=== PATIENT | female | born 1960 | race Caucasian/White ===

== ENCOUNTER 2016-08-28 10:40 | Emergency (ER) | payer BC ==
[2016-08-28 11:00] VITALS: RESP 14; TEMP 97.1
[2016-08-28] MEDS ORDERED: NORMAL SALINE 10 ML SYRINGE FLUSH IVP PRN (11:07)
[2016-08-28] MEDS ORDERED: cefTRIAXone Inj 1 GM in Sodium Chloride 0.9% 100 ML IV ONE (11:08)
[2016-08-28] MEDS ORDERED: Lidocaine 1% 10 MG/ML - 20 ML VIAL SUBCUT ONE (11:09)
[2016-08-28] MEDS ORDERED: HYDROmorphone 2 MG/1 ML IVP ONE (11:45)
[2016-08-28] MEDS ORDERED: ONDANSETRON 4 MG/2 ML VIAL IVP ONE (11:45)
--- NOTE | 2016-08-28 16:11 | PDOC ---
General Adult HPI - General Chief Complaint: General Medical Stated Complaint: "groin pain" Date Seen by Provider: 08/28/16 Time Seen by Provider: 10:35 Source: POSITIVE: Patient Exam Limitations: POSITIVE: No limitations Nurse's Notes Reviewed & Considered: Yes - History of Present Illness Initial Comment: Patient is a 56 year old female. She complains of pain, swelling and redness to her left vaginal area for the past 3 days. She's had some associated nausea but no vomiting. No fevers or chills. She was seen in the walk-in clinic yesterday and was started on doxycycline. She is not sexually active. She's had a hysterectomy. No vaginal bleeding. She's not noticed any cutaneous lesions. Have you received a tetanus shot in the past 10 years?: Yes Body Location Affected: REPORTS: Genitalia (Left vaginal labia majora) Timing: REPORTS: Gradual, Getting Worse Duration: >24 hours (3 days approximately) Severity: Moderate Quality: REPORTS: "Pain" Context: DENIES: None, Sitting, Standing, Activity, Emotional stress, Coughing, Recent Trauma, Recent Surgery, Sleep, Rest, Lifting, Turning, Bending, Fall, Near Fall, Other Modifying Factors: improves with: Other (Direct palpation). worse with: Nothing , Analgesics, Antacids, Breathing, Coughing, Defecating, Vomiting, Eating, Exercise, Lying down, Urinating, Palpation, Movement, Rest, Upright Position, Walking, Remaining Still Similar Symptoms Previously: No Recent Care Received: REPORTS: Recently Seen, Treated by MD (Seen in walk-in clinic yesterday; started on doxycycline) Any Prior Injuries Related to Current Complaint?: No - Patient Home Medications Home Medications: Home Medications Acetaminophen-Cod #3 Tablet [Tylenol #3 Tab] 30 mg PO PRN PRN 02/24/12 Calcium Carbonate/Vitamin D3 [Caltrate 600 W-D Tablet] 1 each PO DAILY 02/24/12 Glucosamine HCl/Chondro Dior A [Glucosamine Chondroitin Cap] 1 each PO DAILY 02/23 Lorazepam 1 mg PO TID 02/24/12 Nebivolol HCl [Bystolic] 10 mg PO DAILY 02/24/12 Pramipexole Di-HCl [Mirapex] 0.125 mg PO DAILY 02/24/12 Pregabalin [Lyrica] 100 mg PO TID 02/24/12 Duloxetine HCl [Cymbalta] 30 mg PO DAILY 04/08/14 Doxycycline Hyclate 1 cap PO BID #20 cap 08/27/[address] Renetta Leiva 08/28/16 - Patient Allergies Allergies/Adverse Reactions: Allergies Allergy/AdvReac Type Severity Reaction Status Date / Time Penicillins Allergy Unknown RASH Verified 08/28/16 10:47 TINCTURE OF BENZOINE Allergy Intermediate RASH Uncoded 08/28/16 10:47 Past Medical History - heen HEENT History: Denies History Cardiovascular History: Hypertension Respiratory History: Denies History Gastrointestinal History: Peptic Ulcer Disease Genitourinary History: Denies History Endocrine History: Denies History Musculoskeletal History: Fibromyalgia Prosthesis or Implant: No Neurological History: Denies History Blood Disorders: Denies History Psychiatric History: Denies History History of Sexually Transmitted Diseases: No Female Reproductive History: Denies History LMP: HYSTER Obstetrical History: Denies History Cancer History: Denies History In Past Year Been Physically Harmed or Verbally Threatened: No History of MDRO: No History of Other Communicable Diseases: No Tobacco Use: Never Smoker Alcohol Use: None Substance Use Type: None Previous Surgical History: Yes Type / Date of Surgery: HYSTERECTOMY, "MULTIPLE OTHERS BUT CAN'T LIST THEM TODAY ". Anesthesia Reactions: No Malignant Hyperthermia: No Significant Family History: No pertinent family hx Past Medical History Reviewed: Reviewed - No Changes ROS - Limitations ROS Limitations: No Limitations Constitution: REPORTS: Denies Symptoms Cardiovascular: REPORTS: Denies Cardiac Symptoms Respiratory: REPORTS: Denies Resp Symptoms Neurological: REPORTS: Denies Neuro Symptoms Gastrointestinal: REPORTS: Denies GI Symptoms Endocrine: REPORTS: Denies Symptoms Musculoskeletal: REPORTS: Denies MS Symptoms Genitourinary: REPORTS: Denies Symptoms, Other (Pain and swelling left side of her vagina) Eyes: REPORTS: Denies Symptoms ENT: REPORTS: Denies Symptoms Skin: REPORTS: Other (Swelling pain and some redness left vaginal labia majora) Lympathic: REPORTS: Denies Lympathic Symptoms Immunologic: POSITIVE: Denies Symptoms Psychiatric: POSITIVE: Denies Psych Symptoms General Adult Exam - General Appearance General Appearance: POSITIVE: Alert, Cooperative, No Acute Distress, No Evidence of Trauma - HEENT HEENT: POSITIVE: Head Inspection Nml, Eyes Inspection Nml, Ears Inspection Nml, Nose Inspection Nml, Oral/Dental Inspect. Nml, Pharynx Inspect. Nml, PERRL, EOMI - Pupils Pupil Size: 3 mm: Bilateral - Neck Neck: POSITIVE: Normal Inspection, Thyroid Normal - Respiratory Respiratory: POSITIVE: No Respiratory Distress, Breath Sounds Normal, Chest Non- Tender - Cardiovascular Cardiovascular: POSITIVE: Regular Rate & Rhythm, No Murmur, No Gallop, PMI Normal Peripheral Pulses: Radial (R): 2+, Radial (L): 2+ - Abdomen Abdomen: Soft: (All Quadrants), Normal Bowel Sounds: (All Quadrants), Denies Tenderness: (All Quadrants), No Splenomegaly: (All Quadrants), No Hepatomegaly: (All Quadrants), No Guarding: (All Quadrants), No Rebound: (All Quadrants), No Palpable Pulse: (All Quadrants), No Palpabale Mass: (All Quadrants), No Distention: (All Quadrants), No Rigidity: (All Quadrants) - Back Back: POSITIVE: Normal Inspection - Skin Skin: POSITIVE: Erythema, Other (Swelling with some tenderness and redness left vaginal labia majora; no fluctuance, pointing or obvious abscess appreciated.) - Extremities Extremity: Non-Tender: (All Extremities), Normal ROM: (All Extremities), Normal Inspection: (All Extremities) - Neurological / Psychological Neurological: POSITIVE: Oriented X3, clay hoister Normal As Tested, Motor Normal, Sensation Normal, 5, 6 Images - Genitalia Female Genitalia: 1 - Swelling, redness, tenderness; no fluctuance, pointing or obvious abscess appreciated General Adult Progress - Patient's Progress Pain Medication Addressed: POSITIVE: Patient Refused (Pain declined any analgesia; she was given Zofran, 4 mg IV with relief of her nausea) School/Work Release Addressed: POSITIVE: Not Applicable Re-Examine Time: 12:00 Re-Examine Comment: Patient given a gram of Rocephin IV. Advised the patient that I see no abscess at this time to incise or drain. Dr. Schulte, HAND SCRAPER, consulted, who will see the patient in the emergency room. Status: POSITIVE: Unchanged, Re-Examined Antibiotics Given: Yes (Rocephin 1 g IV) - Consult Consult (If Yes, Name of Consulting MD & Time Called): Yes (Dr. Schulte, HAND SCRAPER , 1730) Consulting MD will see pt:: POSITIVE: In ED, In Office (HAND SCRAPER solar consultant saw patient in ER and will follow-up with patient in his office.) Counseled: POSITIVE: Patient, RE: DX, RE: Need for F/U Patient Care Time - Estimated PCT Patient Care Time (In Minutes): 40 Vital Signs - Recent Vital Signs Vital Signs: Vital Signs (Last 8 hours) Temp Pulse Resp BP Pulse Ox 08/28/16 10:40 97.1 F 103 H 14 96/52 97 - VS Reviewed Vital Signs Reviewed: Yes Discharge Clinical Impression: Cellulitis Discharge Disposition: Discharged to Home (Follow-up with HAND SCRAPER solar consultant) Condition: Good Patient Instructions Given at Discharge: Cellulitis (ED) Additional Instructions: Pt to follow up with Dr. Schulte at 9 am tomorrow morning at his office. Do not eat or drink anything after midnight tonight in case further evaluation shows need for surgery. Follow Up With: CRISTOPHER SCHULTE [STAFF PHYSICIAN] - 08/29/16 9:00 am (to see Dr. Schulte in am) NONE,NONE [Primary Care Provider] -
--- NOTE | 2016-08-28 16:36 | CONSULT ---
Consult Note - Consult Consult Date: 08/28/16 Reason for Consult: cellulitis Requesting Physician: Dr. Agrawal Primary Care Provider: NONE NONE - History of Present Illness History of Present Illness: The patient is a 56-year-old G0 LMP about 10 years ago when the patient had a hysterectomy/BSO who presented to the emergency room today after a 3 day history of pain and swelling in her left labia. The patient recalls waking up early Saturday morning with swelling of her left labia. Positive pain. This worsened throughout the day and the patient was then seen Saturday in the acute care clinic and was diagnosed with a cyst on her perineum and was treated with doxycycline since the patient was allergic to penicillin. The patient then believes she had a fever last night or early this morning but did not take her temperature. The patient's pain continued and the patient went to the emergency room today and the ER physician saw her and did not notice any fluctuance but only the cellulitis. The patient was given [address] Agrawal then consulted me to ensure that there is not an area that needed to be incised and drained. The patient does not recall any specific injury to her left labia. The patient is not sexually active. No trauma. Past medical history significant for hypertension, chronic pain status post an injury to her chest. The patient takes chronic pain medications-Tylenol 3 and sees a pain physician in [place], [place]. Migraine headaches The patient is allergic to penicillins and to tincture of benzoin Past Medical History Tobacco Use: Never Smoker Substance Use Type: None Medication / Allergies Home Medications: Home Medications Medication Instructions Recorded Confirmed Type Acetaminophen-Cod #3 Tablet 30 mg PO PRN PRN 02/24/12 08/28/16 History [Tylenol #3 Tab] Calcium Carbonate/Vitamin D3 1 each PO DAILY 02/24/12 08/28/16 History [Caltrate 600 W-D Tablet] Glucosamine HCl/Chondro Dior A 1 each PO DAILY 02/24/12 08/28/16 History [Glucosamine Chondroitin Cap] Lorazepam 1 mg PO TID 02/24/12 08/28/16 History Nebivolol HCl [Bystolic] 10 mg PO DAILY 02/24/12 08/28/16 History Pramipexole Di-HCl [Mirapex] 0.125 mg PO DAILY 02/24/12 08/28/16 History Pregabalin [Lyrica] 100 mg PO TID 02/24/12 08/28/16 History Duloxetine HCl [Cymbalta] 30 mg PO DAILY 04/08/14 08/28/16 History Doxycycline Hyclate 1 cap PO BID #20 cap 08/27/16 08/28/[address] Renetta Leiva 08/28/16 History Allergies/Adverse Reactions: Allergies Allergy/AdvReac Type Severity Reaction Status Date / Time Penicillins Allergy Unknown RASH Verified 08/28/16 10:47 TINCTURE OF BENZOINE Allergy Intermediate RASH Uncoded 08/28/16 10:47 Exam - Vitals Vital Signs: Vital Signs Temperature 97.1 F Temperature Source Temporal Artery Scan Pulse Rate [Pulse Oximeter 103 Right] Respiratory Rate 14 Blood Pressure [Right Arm] 96/52 Pulse Ox 97 Oxygen Delivery Method Room Air Height 5 ft 5 in Weight 270 lb - General General Appearance: POSITIVE: Cooperative, Mild Distress (Secondary to discomfort in the patient's left labia majora) - Respiratory Respiratory Exam: POSITIVE: Clear to Auscultation - Bilaterally - Cardiovascular Cardiovascular Exam: POSITIVE: RRR - GI/Abdominal GI/Abdominal Exam: POSITIVE: Normal Bowel Sounds, Non Tender, Non Distended, Soft - Rectal Rectal Exam: POSITIVE: Normal Inspection. NEGATIVE: Tenderness (Nontender to exam. No fluctuance or masses noted. No evidence of perirectal abscess by exam ) - External Exam: POSITIVE: Swelling (Left labia majora; no fluctuance to palpation , positive induration, positive tenderness.), Erythema (Left labia majora). NEGATIVE: Laceration(s), Lesion(s) Exam: POSITIVE: Deferred Additional Exam Details: Bimanual exam did not yield any masses at 5:00 such as a Bartholin's duct abscess on left or right side. - Psychiatric Psychiatric Exam: POSITIVE: Normal Affect, Normal Mood - Integumentary Integumentary Exam: POSITIVE: Normal Color Assessment and Plan - Assessment / Plan Additional Assessment/Plan Details: Assessment: Left labia majora cellulitis. No evidence of abscess by exam today. No evidence of perirectal abscess by exam. No evidence of Bartholin duct abscess by exam. Plan: Discharge home The patient did receive 1 dose of Rocephin IV in the emergency room. Ceftin 500 mg by mouth twice a day for 10 days #20 and no refills Clindamycin 150 mg 3 capsules by mouth 3 times a day for 10 days #90 no refills Of note, I did speak with our clinical pharmacology team [place] [facility] [place] There is some overlap between Ceftin and clindamycin with respect to anaerobes. However, both antibiotics were prescribed secondary to the cellulitis after considering different options. The patient will stop the doxycycline that she was prescribed. Of note, I called both of these prescriptions in to [facility] here in [place], [place]. Warm compresses to area 4 times a day. Return to the medical office building to see me tomorrow morning at 0900 hours in the morning. Nothing by mouth after midnight in case a fluctuant area develops that I would recommend incision and drainage tomorrow. The patient has Tylenol 3 which works well for her for pain control Ibuprofen 800 mg 3 times a day with food or milk The patient denies shaving her area but I suggested only clipping if she does want shorter pubic hair. The patient expressed understanding with the above. I actually called the patient after I prescribed the medications.
== END 2016-08-28 15:30 | disposition home or self-care (01) ==
LOC: ER 10:40
DX: N76.2 Acute vulvitis (principal); R10.2 Pelvic and perineal pain
CPT/HCPCS: 96365; 96375; 99282; 99283; J0696; J2001; J2405; J7050

== ENCOUNTER 2016-08-29 11:54 | Inpatient (IN) | payer BC ==
[~2016-08-29 11:54] MED LIST: LIDOCAINE W/ SODIUM BICARB 0.5 ML SYR ONE; Sodium Chloride 0.9% 1,000 ML ONE
[2016-08-29] MEDS ORDERED: Clindamycin 900mg (Premix) 50 ML IV ONE (12:13)
[2016-08-29] MEDS ORDERED: Sodium Chloride 0.9% 1,000 ML ONE (12:36)
[2016-08-29] MEDS ORDERED: fentaNYL Inj 250 MCG/5 ML VIAL ONE (13:02)
[2016-08-29] MEDS ORDERED: SODIUM BICARBONATE 8.4% - 50 ML VIAL ONE (13:02)
[2016-08-29] MEDS ORDERED: MIDAZOLAM 5 MG/1 ML ONE (13:02)
[2016-08-29] MEDS ORDERED: LIDOCAINE 2% 20 MG/ML - 20 ML VIAL ONE (13:02)
[2016-08-29] MEDS ORDERED: BUPivacaine Inj 0.5% PF (5mg/ml) 10ml vial ONE (13:02)
[2016-08-29] MEDS ORDERED: Sodium Chloride 0.9% 2,000 ML ONE ×2 (13:23→16:02)
--- NOTE | 2016-08-29 15:30 | OB.OP.NOTE ---
Operative Report Surgeon: Salvador Anesthesia Type: Local (Half percent Marcaine with epinephrine), MAC Anesthesia Provider: Jian Bell CRNA Surgery Date: 08/29/16 Preoperative Diagnosis: Left labia majora abscess. New onset type II diabetes. Hyponatremia Postoperative Diagnosis: Same Procedure: Incision and drainage of left labia majora abscess Estimated Blood Loss (mL): 100 Fluids: 1500 mL normal saline in OR. 2000 mL normal saline in the PACU prior to the OR. Rocephin 2 g IV prior to the OR. Clindamycin 900 mg IV prior to OR. The patient voided just prior to going to the operating room Complications: None apparent Findings at Surgery: About 15 mL of exudate obtained after incision and drainage of left labia majora abscess at 3 different locations 3 different incisions packed with quarter inch non-iodoform gauze Indications for the Procedure: 56-year-old woman G0 LMP about 10 years ago and patient had a hysterectomy/BSO who awoke on Saturday morning (today is Saturday) with left labia majora swelling and pain. Patient was seen in the acute care clinic on Saturday afternoon and was placed on doxycycline. The patient went to the emergency room yesterday and was diagnosed with cellulitis but I was asked to see the patient. The patient received 1 g of Rocephin IV in the emergency room. I examined the patient and there was no evidence of a vaginal abscess such as a Bartholin duct abscess and no evidence of a perirectal abscess by rectal exam. There was no fluctuance by my exam and the left labia majora was erythematous but the mons pubis was not. The patient was placed on Ceftin and clindamycin orally and asked to return this morning to see me in my office. In my office this morning, the patient stated that her pain was about the same. On exam, the mons pubis was erythematous with some induration but no fluctuance. There was some leakage of exudate inferior to the labia majora a couple centimeters from the posterior fourchette of the vagina on the left side. The exudate was coming from a few small pores but there was no abruption of the skin. The labia majora appeared slightly fluctuant superiorly. Labs were obtained and the patient's white count was 18,000 and the patient's glucose returned at 600. Sodium was 122. The patient stated that that she did not have a history of type II diabetes that she knew of. She is followed by a primary care physician in [place], [place] who also follows her for chronic pain secondary to a chest injury that she had historically. The patient is on Tylenol 3 for the chronic pain. With the above, I spoke with infectious disease and a Gram stain of the exudate was obtained. It was polymicrobial. Gram-positive cocci, gram-negative rods and gram-positive rods were visualized on the Gram stain. The patient was administered Rocephin 2 g IV and clindamycin 900 mg IV prior to the surgery. Consent forms were signed and the patient was brought to the operating room for I&D of her left labia majora. The patient was informed prior to the surgery that she may require multiple surgeries. We also discussed about necrotizing fasciitis and type II diabetics and the fact that she may require transfer to a tertiary care hospital in [facility] for further care depending upon her condition. Patient expressed understanding. Description of Procedure: The patient was brought to the operating room after the risks, benefits, alternatives, and indications were discussed with the patient and consent form was signed. The plan was for local MAC anesthesia. The patient was placed on the operating room table and placed in the [facility] stirrups after positioning. The patient was then prepped and draped sterilely while the patient was receiving MAC. The patient had just voided in the PACU prior to being brought to the operating room. I examined the patient. The area where the patient had spontaneous exudate from small pores was examined and half percent Marcaine with epinephrine was injected around that area and a small less than 1 cm incision was made. This incision was made a couple centimeters to the left of the posterior fourchette of the patient's vagina. Basically the most inferior aspect of the patient's labia majora. I then probed the area with a sterile Q-tip. At this time there was no tracking. There was some venous bleeding but no arterial bleeding. Quarter inch non-iodoform gauze was used to pack the area initially. Attention was then turned to the patient's superior left labia majora. An area of induration and perhaps fluctuance was palpated. I injected half percent Marcaine with epinephrine and then made about a 15 mm incision. I then probed this incision with small Jasmin instruments and did not get any return of exudate. I then took the knife blade one more time and gently punctured about 2 cm in depth a small layer of tissue and then probed this area with a Floridalma instrument and obtained several cc of exudate that had an odor of an anaerobic exudate. Attention was then turned to the patient's left labia majora about a centimeters inferior to I superior incision. Half percent Marcaine with epinephrine was injected in the skin and then I made an incision with a knife blade and then probed with a Floridalma and exudate was obtained. In total, perhaps 15 mL of exudate was expressed from the patient's labia majora. I then irrigated the superior I&D site and communication with the site that I last made 5 cm inferior to that was easily noted with saline coming out of the inferior incision. I was able to probe with a Floridalma and a track was noted. I then irrigated the incision I made last and I could determine that there was communication to the superior incision that I had made but also to the most inferior incision that I had made that was already draining some this morning. I irrigated with copious amounts of saline. I then made a phone call to a CORRUGATOR oncologist in [place] but was not able to speak with Dr. Willson. My question was whether or not to open up the labia majora completely between the 3 incisions that I had made previously to open up the entire labia majora and then allow the labia majora to heal by secondary intention and packing the wound. I then spoke with my HOME APPLIANCE WASHING MACHINE MECHANIC partner on the phone and we both decided secondary to the new diagnosis of type II diabetes with a glucose of 600 and the hyponatremia, the best action would be to pack the incisions that I previously made and then, if need be, take the patient back to the operating room again if the recommendation was to open up the entire labia majora. Enough of the abscess was currently drained that will allow the patient to start to heal and also will allow the patient's glucoses to hopefully become better controlled as well as the hyponatremia. At that time, there was minimal bleeding from the most inferior incision site which was dark blood but the other 2 sites were hemostatic and I packed all 3 wounds with quarter inch non-iodoform gauze after the gauze that I initially packed in the most inferior incision was removed. So all 3 I&D sites had quarter-inch non-iodoform gauze packed and the gauze was protruding out of each incision site so they could be easily removed. The patient tolerated the procedure very well with the local MAC. The patient was brought to the PACU in stable condition. Sponge and lap counts were correct 2. Packing was left in place. 4 x 4 gauze was packed between the patient's buttock's for the most inferior incision and other gauze was placed over the patient's labia majora on the left side. Plan: The patient will be brought to the PACU. After recovery in the PACU [facility] I previously spoke with the hospitalist-Dr. Griffin and he will primary the patient since the patient is a new onset type II diabetic with a glucose of 600 initially this morning and a sodium of 122. The patient will receive Rocephin 2 g IV every 24 hours The patient will receive clindamycin 900 mg IV every 8 hours I ordered hydrocodone for the patient even though she takes Tylenol No. 3. Folded with physical therapy and they will see the patient around 1700 hrs. to evaluate the patient for repacking the 3 I&D sites this evening or just in the morning. The patient should have this completed twice a day.
[2016-08-29] MEDS ORDERED: Insulin Lispro Flexpen 300 UNIT/3 ML INSULN.PEN SUBCUT ONE ×2 (16:14→16:30)
[2016-08-29] MEDS ORDERED: Insulin Sliding Scale Protocol SUBCUT PRN (16:24)
[2016-08-29] MEDS ORDERED: Glucagon Inj Vial 1 MG/ML VIAL IM PRN (16:24)
[2016-08-29] MEDS ORDERED: LORazepam 1 MG TABLET PO PRN (16:24)
[2016-08-29] MEDS ORDERED: DEXTROSE 31 GM GEL PO PRN (16:24)
[2016-08-29] MEDS ORDERED: DEXTROSE 50%-WATER SYRINGE 50 ML SYRINGE IVP PRN (16:24)
[2016-08-29] MEDS ORDERED: Lactated Ringers 1,000 ML PRIMARY IV SCH (16:25)
[2016-08-29] MEDS ORDERED: HYDROcodone-APAP 5 MG -325 MG TABLET PO PRN (16:25)
[2016-08-29] MEDS ORDERED: NORMAL SALINE 10 ML SYRINGE FLUSH IVP PRN (16:25)
[2016-08-29] MEDS ORDERED: Sodium Chloride 0.9% 1,000 ML PRIMARY IV SCH ×2 (16:30→18:30)
--- NOTE | 2016-08-29 16:37 | PDOC ---
History and Physical - History of Present Illness Date and Time of Service: 08/29/2016, 1635 Chief Complaint: Labial infection History of Present Illness: This very pleasant 56-year-old female that has chronic pain syndrome from an old chest injury, possible obstructive sleep apnea with snoring, weight gain of 30-40 pounds in the last year, who generally follows her care in [place], [place] , who came into the acute clinic on Saturday having complaints of some pain in her vaginal area. She thought she might have a zit pimple in her labial area. She was seen by one of the providers at the open access clinic and placed on doxycycline with follow-up to see Dr. Franco. She saw Dr. Franco, and he ended up feeling that this had to be drained surgically. Initially, it was not reddened or indurated. However, on the follow-up visit, the patient had worsening induration and drainage on the inferior aspect of the lesion, and the patient was taken to the operating room today. She had gotten a dose of Rocephin in the emergency room last night but apparently labs were not checked. She got a BMP and a CBC today that showed a white count of over 18,000 with 20 bands and a creatinine of 1.8 and a sugar of over 600. She did not know she was diabetic. Dr. Franco discussed with me whether or not he should proceed with surgery first or admit her for diabetes and glucose control, and I suggested that we should drain the infection first and then I could deal with things later. Postoperatively, the patient states her pain is well-controlled, she has no chest pain and no shortness breath, but she does have hypotension. Despite 3700 MLS in the operating room, and liters #4 and 5 currently, the patient still has systolic pressures in the 80s and diastolics in the 60's. We have now bolused 3 L of normal saline in addition to the 3700 mL given and surgery and pressures are still on the low side in the 80s over 60s. We have also placed a central line separate of this evaluation and management. I spoke to an brazer controlled atmospheric furnace at [facility] regarding potential transfer for continued monitoring of labial infection, sepsis, and other potential interventions. I asked for medical vancomycin which we have dosed. She had significant pain in the pelvis region that Tylenol 3 wasn't controlling. It is difficult to use medications for the patient for interventions prior to her surgery today and hospital admission, and this was attributed to severe nausea. Past Medical History Medical History: 1. Hypertension. 2. Chronic pain syndrome related to prior chest trauma Surgical History: 1. Cholecystectomy. 2. Hysterotomy. 3. Appendectomy. 4. Drainage of labial abscess and mons pubis abscess today. 5. Neck surgery 2 Pertinent Family History: Significant for cancer in her father, also significant for diabetes. Past Social History: Does not smoke or drink. . No children of her own. Has been to her for 18 years. Lives in [place], [place]. Her provider is Mitesh Carney PA-C in [place], [place]. Tobacco Use: Never Smoker Substance Use Type: None Alcohol Use: None Medication / Allergies Home Medications: Home Medications Medication Instructions Recorded Confirmed Type Acetaminophen-Cod #3 Tablet 30 mg PO PRN PRN 02/24/12 08/29/16 History [Tylenol #3 Tab] Calcium Carbonate/Vitamin D3 1 each PO DAILY 02/24/12 08/29/16 History [Caltrate 600 W-D Tablet] Glucosamine HCl/Chondro Dior A 1 each PO DAILY 02/24/12 08/29/16 History [Glucosamine Chondroitin Cap] Lorazepam 1 mg PO TID 02/24/12 08/29/16 History Nebivolol HCl [Bystolic] 10 mg PO DAILY 02/24/12 08/29/16 History Pramipexole Di-HCl [Mirapex] 0.125 mg PO DAILY 02/24/12 08/29/16 History Pregabalin [Lyrica] 100 mg PO TID 02/24/12 08/29/16 History Duloxetine HCl [Cymbalta] 30 mg PO DAILY 04/08/14 08/29/16 History Doxycycline Hyclate 1 cap PO BID #20 cap 08/27/16 08/29/[address] Renetta Leiva 08/28/16 History Allergies/Adverse Reactions: Allergies Allergy/AdvReac Type Severity Reaction Status Date / Time Penicillins Allergy Unknown RASH Verified 08/29/16 12:22 TINCTURE OF BENZOINE Allergy Intermediate RASH Uncoded 08/29/16 12:22 Ceftriaxone - rec'ed without Allergy Unknown NOT Uncoded 08/29/16 12:22 issue APPLICABLE Review of Systems - Review of Systems All Systems: Reviewed & No Additional Complaints Except as Stated (I did a 12 point review systems and it was as per history present illness with noted exceptions below.) - Constitutional Constitutional: REPORTS: Weight Gain (30-40 pounds over the last year.), Fever/ Chills (Parrish chills) - Respiratory Respiratory: REPORTS: Negative System Review - Cardiovascular Cardiovascular: REPORTS: Negative System Review - Gastrointestinal Gastrointestinal / Abdominal: REPORTS: Nausea (Has had significant nausea the past 3 days with all of these symptoms. She has not been able to hold any medications down. She has not been able to drink a lot of fluids.) - Genitourinary Genitourinary: REPORTS: Incontinence (Occasional) - Gynecological Gynecological: REPORTS: Pelvic Pain Para: 0 - Musculoskeletal Musculoskeletal: REPORTS: Other (Joint pain, particularly in chest and thoracic spine) - Hematlogic / Lymphatic Hematologic / Lymphatic: REPORTS: Other (No history of cancer, does not bruise easily) - Neurological Neurologic: REPORTS: Other (May have sleep disturbances such as sleep apnea) - Psychiatric Psychiatric: DENIES: Anhedonia, Anxiety, Depressed, Hopelessness, Hospitalization, Negative System Review, Other, Panic, Sadness, See HPI, Suicidality, Tearfullness Exam - Vitals Vital Signs: Vital Signs Temperature 97.9 F Temperature Source Temporal Artery Scan Pulse Rate 75 Respiratory Rate 14 Blood Pressure 85/54 Oxygen Flow Rate 2 Oxygen Delivery Method Room Air Height 5 ft 5 in Weight 270 lb - General General Appearance: POSITIVE: No Acute Distress, Cooperative Additional General Exam Details: Appears ill, meets criteria for sepsis, is alert and oriented person, place, time, situation. - Head Head Exam: POSITIVE: Normal Inspection, Normocephalic, Atraumatic - Eye Eye Exam: POSITIVE: No Scleral Icterus - ENT ENT Exam: POSITIVE: Mucous Membranes Dry - Neck Neck Exam: POSITIVE: Normal Inspection, No Tenderness, No Thyromegaly - Respiratory Respiratory Exam: POSITIVE: Clear to Auscultation - Bilaterally, Breathing Non Labored, Normal to Percussion and Palpation - Cardiovascular Cardiovascular Exam: POSITIVE: RRR, No Murmur, No Clicks, No Gallops, No Rubs, No JVD - GI/Abdominal GI/Abdominal Exam: POSITIVE: Normal Bowel Sounds, Non Tender, Non Distended, Soft - Rectal Rectal Exam: POSITIVE: Deferred - External Exam: POSITIVE: Deferred Additional Exam Details: severe left labial swelling with iodoform gauze packing. harvey placed - Extremities Extremities Exam: POSITIVE: No Clubbing Present, No Edema Present, No Cyanosis Present - Back Back Exam: POSITIVE: Normal Inspection, No CVA Tenderness - Neurological Neurological Exam: POSITIVE: Alert, Oriented x 3, No Facial Droop, Speech Intact / Clear, Moves All Extremities Equally - Psychiatric Psychiatric Exam: POSITIVE: Normal Affect, Normal Mood - Integumentary Additional Integumentary Exam Details: labial findings as above, please note patient was examined in presence of a stone gluer - Central Line Examination Central Line Present on Admission: No Results - Labs Labs - Last 24 Hours: Patient had preoperative labs drawn as an outpatient. Her creatinine was 1.8, glucose over 600, sodium 122, potassium 5.1. White blood count was over 18,000 with 20 bands on differential. Blood cultures have been drawn Gram stain culture from drainage from the labial wound showed gram-positive cocci, gram-negative rods, gram-positive rods. Cultures Pending at this time. - Imaging Status: Image Reviewed by Me (I did a chest x-ray after the central line was placed. The central line on the right side appears to be in the correct location, somewhat tortuous approach, with catheter tip just above the atrium. No evidence of pneumothorax. No new infiltrate.) Assessment and Plan - Patient Problems (1) Sepsis Current Visit: Yes Status: Acute Qualifiers: Sepsis type: sepsis due to unspecified organism Qualified Description: Sepsis, due to unspecified organism Qualifier Code(s): (A41.9) Sepsis, unspecified organism (2) Poorly controlled type 2 diabetes mellitus Current Visit: Yes Status: Acute (3) Labial infection Current Visit: Yes Status: Acute (4) Acute renal failure Current Visit: Yes Status: Acute Qualifiers: Acute renal failure type: unspecified Qualified Description: Acute renal failure, unspecified acute renal failure type Qualifier Code(s): ( N17.9) Acute kidney failure, unspecified (5) Hypertension Current Visit: Yes Status: Acute Qualifiers: Hypertension type: essential hypertension Qualified Description: Essential hypertension Qualifier Code(s): (I10) Essential (primary) hypertension (6) Chronic pain syndrome Current Visit: Yes Status: Acute - Assessment / Plan Additional Assessment/Plan Details: The patient was admitted to the intensive care unit, catheter was placed. I'll bolus the patient 4 L of normal saline in addition to the 3700 mL she got in surgery. This was important in the setting of hypotension that persisted and was refractory to fluid resuscitation. I suggested we place a central line and did that separate and unique of this visit. Call to [facility] for transfer as patient needs obstetrics and gynecology, intensive care care and plastics and wound care for this labial infection. Rocephin and clindamycin have been written for, and the patient got 1 dose of vancomycin. Blood sugars currently over 300s, and so we will start an insulin drip. Total critical care time, not including line placement, 90 minutes. No overlap.
[2016-08-29 16:41] VITALS: RESP 20; TEMP 98.3
[2016-08-29] MEDS ORDERED: Vancomycin-PHA to Dose IV PRN (16:46)
[2016-08-29] MEDS ORDERED: LIDOCAINE HCL/PF 1% (10 MG/1 ML) - 2 ML AMP ONE ×4 (17:14→17:40)
[2016-08-29] MEDS ORDERED: NOREPINEPHRINE BITARTRATE 4 MG/4 ML VIAL IV ONE ×2 (17:59→18:00)
[2016-08-29] MEDS ORDERED: Norepinephrine Drip 8 MG in D5W 250 ML IV SCH (18:00)
[2016-08-29] MEDS ORDERED: D5W 250 ML IV ONE (18:01)
[2016-08-29] MEDS ORDERED: Sodium Chloride 0.9% 100 ML IV ONE (18:15)
[2016-08-29] MEDS ORDERED: INSULIN REGULAR, HUMAN 100 UNIT/1 ML - 3 ML ONE (18:16)
[2016-08-29] MEDS ORDERED: HYDROmorphone 2 MG/1 ML ONE (18:18)
[2016-08-29] MEDS ORDERED: ONDANSETRON 4 MG/2 ML VIAL ONE (18:20)
[2016-08-29] MEDS ORDERED: Insulin Regular Inj 100 UNIT in Sodium Chloride 0.9% 99 ML IV SCH (18:30)
--- NOTE | 2016-08-29 18:32 | PROCEDURE1 ---
Procedure - - Date and Time of Service: 08/29/2016, 1829 Procedure Note: Procedure performed: Right Internal jugular central venous catheter placement Indication for procedure: Sepsis refractory to early goal-directed therapy and fluid resuscitation., with risks discussed as possible arterial puncture, pneumothorax, and localized pain. Benefits for medication administration, blood draws, hemodynamic monitoring, and management of sepsis. Description of procedure: The patient was prepped and draped in the usual fashion with a full body drape. Ultrasound guidance was used to identify the right internal jugular vein. The area was cleansed with chlorhexidine. Lidocaine was used for local anesthesia. Using an introducer needle attached to a 5 mL syringe, this was inserted and angled towards the ipsilateral nipple, with ultrasound guidance as well. There was a flash of venous blood as the internal jugular vein was cannulated via the introducer needle. A guidewire was inserted through the needle into the internal jugular vein and the needle was removed over the wire. A 10 blade was then used to perform a small dermatotomy at the needle insertion site. The venous dilator was then placed over the guidewire using Seldinger technique, and then removed. 3 port central venous catheter was then placed over the guidewire inserted into the internal jugular vein and the guidewire was removed. All ports were flushed with normal saline. All ports had draw back. The catheter was sutured into place, and the skin was cleansed with chlorhexidine and the catheter was dressed. A postprocedure x-ray showed Central line in the correct location with tortuous approach to the tip being right over the right atrium. I personally reviewed the chest X-ray. Complications: Several attempts at cannulization had to take place on both the right and the left side, but eventually we got cannulization of the internal jugular vein on the right. There were no obvious problems for the patient, but we had one guidewire that actually bent on approach, and a vein dilator that did the same. Based on chest x-ray, I think the tortuous nature of this internal jugular vein was one of the reasons for these issues. Disposition: Patient remains in critical condition in the ICU awaiting transfer to [facility].
--- NOTE | 2016-08-29 18:35 | DCSUMMARY ---
Hospitalization Summary Admit Date: 08/29/16 Discharge Date: 08/29/16 Primary Diagnosis:: sepsis with refractory hypotension Hospital Course: This very pleasant 56-year-old female who did not know that she had diabetes and developed labial infection. She was admitted today after a labial and mons pubis incision and drainage performed by Dr. Franco. Please see his surgical note. Postoperatively, the patient was admitted to the intensive care unit was found to have refractory hypotension and sepsis did not respond to fluid resuscitation. Despite 7 L of normal saline, the patient continued to have hypotension in the 80s over 60s range. We did place a central line, vasopressors were started, and blood sugars were rechecked. Given if blood sugars are now down in the 300s, we felt it best to start an insulin drip and started that at 8 units per hour. The patient is been alert and oriented through the whole situation. She continues to have labial pain or has developed labial pain post surgery and we did give her some Dilaudid for that. Given the complexity of this infection, diabetes, acute renal failure, sepsis with refractory hypotension not responding to fluid with early goal-directed therapy, the patient was transferred to [facility]. On transfer the patient had labial pain, no chest pain, no shortness breath. Please note the patient did get a dose of Rocephin, clindamycin, and vancomycin. Assessment and Plan: 1. As per discharge assessments noted 2. Disposition: Patient's discharge to [facility] 3. Condition on discharge, stable and improved. 4. Diet: Nothing by mouth for now 5. Activities: resume normal activities/as per [facility] 6. Follow-Up: 1. Mitesh Carney PA-C posthospital stay in [place] 2. 7. Medications at the Time of Discharge: Active Medications Generic Name Dose Route Start Last Admin Trade Name Freq PRN Reason Stop Dose Admin Acetaminophen/Hydrocodone Bitart 1 - 2 tab 08/29/16 16:25 [place] 5/325 Tab PO Q4H PRN Pain Dextrose 30 - 40 ml 08/29/16 16:24 Dextrose 50% Inj IVP Q15M PRN BG < 70 unable to take oral Duloxetine HCl 30 mg 08/30/16 09:00 Cymbalta PO DAILY BISI Glucagon 0.5 mg 08/29/16 16:24 Glucagen IM ONCE PRN BG < 70 NPO & NO IV Glucose 15 - 20 gm 08/29/16 16:24 Insta-Glucose Gel PO Q15M PRN BG < 70 Ceftriaxone Sodium 2 gm/ 100 mls @ 200 mls/hr 08/30/16 11:00 Sodium Chloride IV Q24H BISI Clindamycin Phosphate 900 mg/ 50 mls @ 100 mls/hr 08/29/16 20:00 Glucose IV Q8H BISI Lactated Ringer's 1,000 mls @ 100 mls/hr 08/29/16 16:25 Lr PRIMARY IV .Q10H BISI Sodium Chloride 25 mls @ 200 mls/hr 08/29/16 16:25 Normal Saline 0.9% IV .Post Infusion PRN No Primary IV for Flush ONLY Vancomycin HCl 1.75 gm/ Sodium 500 mls @ 333.333 mls/hr 08/29/16 17:00 18:11 Chloride IV 333.333 mls/hr Q24H BISI Administration Norepinephrine Bitartrate 8 mg 258 mls @ 15.48 mls/hr 08/29/16 18:00 08/29/16 18:10 / Dextrose IV 15.48 mls/hr .TITRATE BISI Administration Protocol 8 MCG/MIN Insulin Human Regular 100 unit 100 mls @ 8 mls/hr 08/29/16 18:30 / Sodium Chloride IV .TITRATE BISI Protocol 8 UNIT/HR Sodium Chloride 1,000 mls @ 125 mls/hr 08/29/16 18:30 Normal Saline PRIMARY IV .Q8H BISI Insulin Human Lispro 0 - 28 unit 08/29/16 21:00 Humalog Flexpen Inj SUBCUT AC [facility] Protocol Lorazepam 1 mg 08/29/16 16:24 Ativan Tab PO TID PRN Agitation / Anxiety /Psychosis Sodium Chloride 5 - 20 ml 08/29/16 16:25 Saline Flush IVP BID PRN Flush 8. Time, care, counseling and coordination of care for this discharge is greater than 30 minutes. Exam - - Exam: See admission history and physical exam earlier today. - Vitals Vital Signs: Vital Signs Temperature 98.3 F Temperature Source Oral Pulse Rate [Telemetry] 74 Pulse Rate 75 Respiratory Rate 20 Blood Pressure [Left Arm] 83/56 Blood Pressure 85/54 Pulse Ox 96 Oxygen Flow Rate 89/62 Oxygen Flow Rate 2 Oxygen Delivery Method Nasal Cannula Height 5 ft 5 in Weight 270 lb Data Perinent Studies: Laboratory Results 08/29/16 Range/Units 16:54 PT 10.5 (9.7-11.4) secs INR 1.02 (0.00-5.90) N/A APTT 28.9 (22.6-31.3) SECS Patient Problems - Patient Problem List (1) Sepsis Current Visit: Yes Status: Acute Qualifiers: Sepsis type: sepsis due to unspecified organism Qualified Description: Sepsis, due to unspecified organism Qualifier Code(s): (A41.9) Sepsis, unspecified organism (2) Poorly controlled type 2 diabetes mellitus Current Visit: Yes Status: Acute (3) Labial infection Current Visit: Yes Status: Acute (4) Acute renal failure Current Visit: Yes Status: Acute Qualifiers: Acute renal failure type: unspecified Qualified Description: Acute renal failure, unspecified acute renal failure type Qualifier Code(s): ( N17.9) Acute kidney failure, unspecified (5) Hypertension Current Visit: Yes Status: Acute Qualifiers: Hypertension type: essential hypertension Qualified Description: Essential hypertension Qualifier Code(s): (I10) Essential (primary) hypertension (6) Chronic pain syndrome Current Visit: Yes Status: Acute
[2016-08-29] MEDS ORDERED: HYDROmorphone 2 MG/1 ML IVP PRN (18:36)
[2016-08-29 18:38] LABS: BASOPHILS # (AUTO) 0.02 10*3/UL; BASOPHILS % (AUTO) 0.1 % (0-1); EOSINOPHILS # (AUTO) 0.02 10*3/UL; EOSINOPHILS % (AUTO) 0.1 % (0-8); HEMATOCRIT 33.1 % (37.0-47.0); HEMOGLOBIN 11.1 g/dL (12.0-16.0); LYMPHOCYTES # (AUTO) 1.51 10*3/uL; MEAN CORPUSCULAR HEMOGLOBIN 29.1 PG (27-31); MEAN CORPUSCULAR HGB CONC 33.5 g/dL (33-37); MEAN CORPUSCULAR VOLUME 86.6 FL (81-99); MEAN PLATELET VOLUME 10.7 FL (7.4-12.2); MONOCYTES # (AUTO) 0.88 10*3/UL (0.3-0.8); MONOCYTES % (AUTO) 5.3 % (5-15); NEUTROPHILS # (AUTO) 14.17 10*3/UL; NEUTROPHILS % (AUTO) 84.9 % (50-80); PLATELET MORPHOLOGY COMMENT NORMAL MORPHOLOGY (NORM); RBC MORPHOLOGY COMMENT NORMAL MORPHOLOGY (NORM); RED BLOOD COUNT 3.82 10^6/uL (4.20-5.40); WBC MORPHOLOGY COMMENT NORMAL MORPHOLOGY (NORM)
[2016-08-29 18:49] LABS: BUN/CREATININE RATIO 28.33 (6-20); CALCIUM 6.6 mg/dL (8.7-10.7); SERUM ALBUMIN 3.2 g/dL (3.5-4.8)
--- NOTE | 2016-08-29 18:56 | DI ---
XR CXR 1VW,08/29/2016 5:53 PM: Clinical History: Sepsis status post central line placement. Previous Exam: April 08, 2014 Findings: A single frontal radiograph of the chest is obtained, and demonstrate stable cardiomegaly. A new central venous catheter is noted with the tip in good position. There is no evidence of pneumothorax nor effusion. Impression: New central venous catheter with the tip in good position.
[2016-08-29] MEDS ORDERED: Clindamycin 900mg (Premix) 900 MG in Dextrose 1 BAG IV SCH (20:00)
[2016-08-29] MEDS ORDERED: Insulin Lispro Flexpen 300 UNIT/3 ML INSULN.PEN SUBCUT SCH (21:00)
[2016-08-30] MEDS ORDERED: DULOXETINE 30 MG CAPSULE PO SCH (09:00)
[2016-08-30] MEDS ORDERED: cefTRIAXone Inj 2 GM in Sodium Chloride 0.9% 100 ML IV SCH (11:00)
== END 2016-08-29 18:32 | disposition short-term general hospital (02) | DRG 746 ==
LOC: SDSC 11:54 → OPS 12:00 → EDSTATUS 14:15 → MED/SURG 15:45 → ICU 16:51
PROVIDERS: ADMIT Obstetrics & Gynecology; ATTEND Family Medicine
PROC: 05HM33Z Insertion of Infusion Device into Right Internal Jugular Vein, Percutaneous Approach (ICD-10-PCS; 2016-08-29)
PROC: 0U9M0ZZ Drainage of Vulva, Open Approach (ICD-10-PCS; principal; 2016-08-29 14:15)
DX: N76.4 Abscess of vulva (principal); A41.89 Other specified sepsis; A41.9 Sepsis, unspecified organism; E87.1 Hypo-osmolality and hyponatremia; N17.9 Acute kidney failure, unspecified; E11.9 Type 2 diabetes mellitus without complications; I95.9 Hypotension, unspecified; I10 Essential (primary) hypertension; G89.4 Chronic pain syndrome
CPT/HCPCS: 71010; 80053; 83605; 85025; 85610; 85730; 87040; J1170; J2001; J2250; J2405; J3010; J3370; J3490; J7030; J7040; J7050; J7060

== ENCOUNTER → 2016-08-29 | Outpatient (CLI) | payer BC ==
[2016-08-29 10:52] LABS: CALCIUM 8.6 mg/dL (8.7-10.7); SERUM ALBUMIN 4.2 g/dL (3.5-4.8)
[2016-08-29 12:27] LABS: MEAN CORPUSCULAR VOLUME 85.2 FL (81-99)
[2016-08-29 12:35] LABS: HEMATOCRIT 39.2 % (37.0-47.0); HEMOGLOBIN 13.5 g/dL (12.0-16.0); MEAN CORPUSCULAR HEMOGLOBIN 29.3 PG (27-31); MEAN CORPUSCULAR HGB CONC 34.4 g/dL (33-37); MEAN PLATELET VOLUME 11.4 FL (7.4-12.2)
[2016-08-29 12:47] LABS: BAND NEUTROPHILS % 20 % (0-10); BASOPHILS % (MANUAL) 0 % (0-1); EOSINOPHILS % (MANUAL) 0 % (0-8); LYMPHOCYTES % (MANUAL) 8 % (10-50); METAMYELOCYTES % 3 %; MONOCYTES % (MANUAL) 2 % (0-12); NEUTROPHILS % (MANUAL) 67 % (50-80); PLATELET MORPHOLOGY COMMENT NORMAL MORPHOLOGY (NORM); RBC MORPHOLOGY COMMENT NORMAL MORPHOLOGY (NORM); WBC MORPHOLOGY COMMENT NORMAL MORPHOLOGY (NORM)
== END ==
LOC: MOB LAB 10:24
PROVIDERS: ATTEND Obstetrics & Gynecology
DX: N76.2 Acute vulvitis (principal); N76.4 Abscess of vulva; E11.9 Type 2 diabetes mellitus without complications
CPT/HCPCS: 36415; 80053; 83605; 85007; 87070; 87075; 87077; 87186; 87205

== ENCOUNTER 2018-10-07 07:30 | Inpatient (IN) ==
[~2018-10-07 07:30] MED LIST changes: +ACETAMINOPHEN 500 MG TABLET PO ONE; +CELECOXIB 200 MG CAPSULE PO ONE; +GABAPENTIN 300 MG CAPSULE PO ONE; -LIDOCAINE W/ SODIUM BICARB 0.5 ML SYR ONE; +LIDOCAINE W/ SODIUM BICARB 0.5 ML SYR SUBD ONE; +Lactated Ringers 1,000 ML PRIMARY IV SCH; +Nasal Sanitizer POPSWAB ampule 3 AMP (Nozin) PREOP DOSE ENOS SCH; +PANTOPRAZOLE 20 MG TABLET.DR PO ONE; -Sodium Chloride 0.9% 1,000 ML ONE; +ceFAZolin Inj 3 GM in Sodium Chloride 0.9% 100 ML IV ONE
[2018-10-28] MEDS ORDERED: LIDOCAINE W/ SODIUM BICARB 0.5 ML SYR ONE ×2 (05:50→05:57)
[2018-10-28] MEDS ORDERED: Lactated Ringers 1,000 ML PRIMARY IV ONE ×3 (05:50→09:42)
[2018-10-28] MEDS ORDERED: ceFAZolin Inj 2gm (Premix) 2 GM/50 ML BAG IV ONE (05:50)
[2018-10-28] MEDS ORDERED: CELECOXIB 200 MG CAPSULE PO ONE ×2 (05:55→06:00)
[2018-10-28] MEDS ORDERED: ACETAMINOPHEN 500 MG TABLET PO ONE ×2 (05:56→06:00)
[2018-10-28] MEDS ORDERED: GABAPENTIN 300 MG CAPSULE PO ONE ×2 (05:56→06:00)
[2018-10-28] MEDS ORDERED: PANTOPRAZOLE 20 MG TABLET.DR PO ONE ×2 (05:56→06:00)
[2018-10-28] MEDS ORDERED: Clindamycin 900mg (Premix) 900 MG/50 ML BAG IV ONE ×2 (05:56→06:00)
[2018-10-28] MEDS ORDERED: LIDOCAINE W/ SODIUM BICARB 0.5 ML SYR SUBD ONE (06:00)
[2018-10-28] MEDS ORDERED: Lactated Ringers 1,000 ML PRIMARY IV SCH ×2 (06:00→11:25)
[2018-10-28] MEDS ORDERED: Nasal Sanitizer POPSWAB ampule 3 AMP (Nozin) PREOP DOSE ENOS SCH (06:00)
[2018-10-28 06:14] LABS: BILIRUBIN,URINE NEGATIVE (NEG); CLARITY,URINE Slightly Cloudy (CLEAR); COLOR,URINE YELLOW (Y); GLUCOSE, URINE (UA) >=1000 mg/dL (NEG); OCCULT BLOOD,URINE NEGATIVE (NEG); PROTEIN,URINE 100 mg/dl (NEG); UROBILINOGEN,URINE 0.2 EU/dL (0.2)
[2018-10-28 06:26] LABS: BACTERIA,URINE FEW; RBC,URINE 0 /hpf; SQUAMOUS EPITHELIAL CELL,UR MODERATE; URINE SAMPLE TYPE CLEAN CATCH URINE
[2018-10-28] MEDS ORDERED: SCOPOLAMINE HYDROBROMIDE 1.5 MG - 1 EACH PATCH TRANSDERM ONE (06:54)
[2018-10-28] MEDS ORDERED: ONDANSETRON 4 MG/2 ML VIAL ONE (06:55)
[2018-10-28] MEDS ORDERED: DEXAMETHASONE PF 10 MG/1 ML VIAL ONE (06:55)
[2018-10-28] MEDS ORDERED: LIDOCAINE 2%/ EPI 1:200,000 - 20 ML VIAL ONE (06:57)
[2018-10-28] MEDS ORDERED: MIDAZOLAM 5 MG/1 ML ONE (06:58)
[2018-10-28] MEDS ORDERED: fentaNYL Inj 100 MCG/2 ML VIAL ONE (06:58)
[2018-10-28] MEDS ORDERED: BUPivacaine Inj 0.5% PF (5mg/ml) 30ml vial ONE (06:58)
[2018-10-28] MEDS ORDERED: Ketorolac Inj 30 MG, Morphine Inj (Ortho Cocktail) 4 MG, BUPivacaine Inj 0.25% PF 150 MG SPLASH ONE ×3 (07:00)
[2018-10-28] MEDS ORDERED: Sodium Chloride 0.9% vial 40 ML ONE (07:01)
[2018-10-28] MEDS ORDERED: BACITRACIN 50,000 UNIT VIAL IRRIG ONE ×2 (07:02→09:40)
[2018-10-28] MEDS ORDERED: BUPivacaine Liposome/PF (Exparel) Inj 20ml vial INFIL ONE (07:02)
[2018-10-28] MEDS ORDERED: MORPHINE SULFATE/PF 10 MG/10 ML AMPULE ONE (07:19)
[2018-10-28] MEDS ORDERED: Propofol 1,000 MG/100 ML VIAL IV ONE (07:42)
[2018-10-28] MEDS ORDERED: TRANEXAMIC ACID 1,000 MG / 10 ML VIAL ONE (08:14)
[2018-10-28] MEDS ORDERED: GENTAMICIN IV ONE (08:30)
[2018-10-28] MEDS ORDERED: SODIUM CHLORIDE 0.9% IV ONE (08:30)
--- NOTE | 2018-10-28 08:46 | CRNA.PROCE ---
Nerve Block Documentation - - Type of Nerve Block Used: Right Adductor Canal Nerve Block Position for Nerve Block: Supine Moniters Used During Block: EKG, SPO2, NIBP Oxygen Supplemented: Yes Sedation Used - Enter Amount in Comment Field [ANES.SEDAT]: Midazolam (mg): Yes (3mg), Fentanyl (mcg): Yes (50mcg) Skin Prep Used: ChloroPrep Draped: No Technique: Ultrasound Nerve Block Needle Used: EchoBright 100 mm Local Anesthetic - Enter Amt in Comment Field [ANES.LOCNB]: 0.5 % Bupivacaine Plain (mL): Yes (20ml), 2 % Xylocaine with Epinephrine 1:200,000 (mL): Yes (20ml) Additives to Nerve Blocks: Dexamethasone (mg): Yes (8mg(2ml)) - - PreOp Block : Time In: 07:00 PreOp Block : Time Out: 07:16 Anesthesia Time - Other Weight: 125 kg Height: 5 ft 5 in Body Mass Index (BMI): 45.8
--- NOTE | 2018-10-28 08:47 | CRNA.PROCE ---
Central Neuraxis Block Placemt - - Safety Measures: Time Out Taken - - Type of Block: Subarachnoid Reason for Block: Surgical Moniters Used During Block: EKG, SPO2, NIBP Positioning: Sitting Skin Prep Used: ChloroPrep Spinal Needle Used: 25 Mike 80 mm Local Anesthetic - Enter Amount Used in Comment Field: 0.75 % Bupivacaine with Dextrose (ml): Yes (2ml) Additive Used - Enter Amount Used in Comment Field: Preservative Free Morphine (mg): Yes (.2mg) Bioclusive Dressing Applied: No Anesthesia Time - Block Time PreOp Block : Time In: 07:00 PreOp Block : Time Out: 07:16 - Other Weight: 125 kg Height: 5 ft 5 in Body Mass Index (BMI): 45.8
[2018-10-28] MEDS ORDERED: PROPOFOL 10 MG/1 ML (200 MG/20 ML) VIAL IV ONE ×2 (08:52→09:58)
[2018-10-28] MEDS ORDERED: Sodium Chloride 0.9% vial 10 ML ONE (09:40)
--- NOTE | 2018-10-28 10:35 | ORTHO.OP ---
Surgery Date: 10/28/18 Preoperative Diagnosis: right knee OA with retained HWR Postoperative Diagnosis: same Procedure: right TKA Surgeon: Jackson Enrique MD Ripening Room Operator: Smita Mena PA-C Anesthesia Provider: Oscar Taylor CRNA Anesthesia Type: Regional (Spinal and adductor canal), MAC Estimated Blood Loss (mL): 150 Fluids: 1400 mL LR Pathology: none Findings: See Operative Note Indications: See Operative Note Complications: None
--- NOTE | 2018-10-28 10:38 | CRNA.PROGR ---
Anesthesia Time - Procedure/Recovery Time Start Date: 10/28/18 End Date: 10/28/18 Anesthesia : Time In: 07:54 Anesthesia : Time Out: 10:37 Anesthesia : Total Time: 163 - Block Time Start Date: 10/28/18 End Date: 10/28/18 PreOp Block : Time In: 07:00 PreOp Block : Time Out: 07:16 PreOp Block : Total Time: 16 - Total Anesthesia Time Total Anesthesia Time (minutes): 179 - Other Weight: 125 kg Height: 5 ft 5 in Body Mass Index (BMI): 45.8 Physical Status: P2 Anesthesia Type: Spinal Block (with adductor canal block)
[2018-10-28 11:21] LABS: Hematocrit [HCT] 38.3 % (37.0-47.0); Hemoglobin [HGB] 12.7 g/dL (12.0-16.0)
[2018-10-28] MEDS ORDERED: ONDANSETRON 4 MG/2 ML VIAL IVP PRN (11:25)
--- NOTE | 2018-10-28 11:37 | PT AM DAY ---
AM - Physical Therapy O: The patient was issued an IROM brace and instructed in its proper use and care. P: No further therapy is indicated at this time. MTDD
--- NOTE | 2018-10-28 12:05 | DI ---
RIGHT KNEE, 10/28/2018 10:35 AM: Clinical History: Status post total knee replacement. Osteoarthritis. Previous Exam: 06/11/2012, and outside films dated 12/23/2017 and 09/11/2018 from [facility] [place], [place]. Views: AP and lateral. Patient is status post total right knee replacement. Prosthetic joint articulates normally. Reading: Status post total right knee replacement. The prosthetic joint articulates normally.
[2018-10-28] MEDS ORDERED: LORazepam 1 MG TABLET PO PRN (12:42)
--- NOTE | 2018-10-28 12:49 | CONSULT ---
Consult Note - Consult Consult Date: 10/28/18 Requesting Physician: Dr. Enrique Primary Care Provider: LILIA BECKETT - History of Present Illness History of Present Illness: This is a 58 years old female with medical history significant for history of hypertension, restless leg syndrome, prediabetes, fibromyalgia, osteoarthritis and chronic pain syndrome who presented to the hospital to have right knee replacement and was done by Dr. Enrique today. The hospitalist service were consulted for management of medical issues. The patient herself was sitting in the bed denying complaints. No nausea, vomiting or pain. Past Medical History Medical History: 1. Hypertension. 2. Chronic pain syndrome related to prior chest trauma. 3. History of restless leg syndrome. 4. History of fibromyalgia. 5. History of prediabetes Surgical History: 1. Cholecystectomy. 2. Hysterotomy. 3. Appendectomy. 4. Drainage of labial abscess and mons pubis abscess. 5. Neck surgery 2. 6. Carpal tunnel release Pertinent Family History: Significant for cancer in her father, also significant for diabetes. Past Social History: Does not smoke or drink. . No children of her own. Has been to her for 18 years. Lives in [place], [place]. Her provider is Mitesh Carney PA-C in [place], [place]. Tobacco Use: Never Smoker In the Past 12 Months, Have Used or Abuse Any of the Following Substance: None Review of Systems - Review of Systems All Systems: Reviewed & No Additional Complaints Except as Stated Medication / Allergies Home Medications: Home Medications Medication Instructions Recorded Confirmed Acetaminophen-Cod #3 Tablet 30 mg PO PRN PRN 02/24/12 10/28/18 [Tylenol #3 Tab] Calcium Carbonate/Vitamin D3 1 each PO DAILY 02/24/12 10/28/18 [Caltrate 600 W-D Tablet] Glucosamine HCl/Chondro Dior A 1 each PO DAILY 02/24/12 10/28/18 [Glucosamine Chondroitin Cap] Lorazepam 1 mg PO TID 02/24/12 10/28/18 Nebivolol HCl [Bystolic] 10 mg PO DAILY 02/24/12 08/29/16 Pramipexole Di-HCl [Mirapex] 0.125 mg PO DAILY 02/24/12 10/28/18 Pregabalin [Lyrica] 100 mg PO TID 02/24/12 10/28/18 Duloxetine HCl [Cymbalta] 90 mg PO DAILY 04/08/14 10/28/18 Doxycycline Hyclate 1 cap PO BID #20 cap 08/27/16 10/28/[address] Renetta Leiva 08/28/16 Atenolol 50 mg PO DAILY 10/28/18 10/28/18 Dapagliflozin Propanediol [Farxiga] 5 mg PO DAILY 10/28/18 10/28/18 Gabapentin 300 mg PO .STATES 5 TIMES A DA 10/28/18 10/28/18 Hydrocodone/Acetaminophen 1 - 2 ea PO Q4-6H PRN #70 tab 10/28/18 [Hydrocodon-Acetaminoph 7.5-325] Ropinirole HCl [Requip] 0.5 mg PO Q6HR 10/28/18 10/28/18 Ropinirole HCl [Requip] 1 mg PO QHS 10/28/18 10/28/18 Sitagliptin Phosphate [Januvia] 100 mg PO DAILY 10/28/18 10/28/18 Allergies/Adverse Reactions: Allergies Allergy/AdvReac Type Severity Reaction Status Date / Time Penicillins Allergy Unknown RASH Verified 10/28/18 11:38 TINCTURE OF BENZOINE Allergy Intermediate RASH Uncoded 10/28/18 06:25 Ceftriaxone - rec'ed without Allergy Unknown NOT Uncoded 10/28/18 06:25 issue APPLICABLE Exam - Vitals Vital Signs: Vital Signs Temperature 96.9 F Temperature Source Temporal Artery Scan Pulse Rate [Pulse Oximeter] 77 Pulse Rate [Apical] 78 Pulse Rate 79 Respiratory Rate 18 Blood Pressure [Left Arm] 126/92 Blood Pressure 114/77 Pulse Ox 100 Oxygen Flow Rate 2 Oxygen Delivery Method Nasal Cannula Height 5 ft 5 in Weight 275 lb 9.245 oz - General General Appearance: No Acute Distress, Cooperative, Morbidly Obese - Head Head Exam: Normal Inspection - Eye Eye Exam: POSITIVE: Normal Appearance - ENT ENT Exam: POSITIVE: Normal Exam - Neck Neck Exam: Normal Inspection - Respiratory Respiratory Exam: POSITIVE: Clear to Auscultation - Bilaterally - Cardiovascular Cardiovascular Exam: POSITIVE: RRR - GI/Abdominal GI/Abdominal Exam: POSITIVE: Normal Bowel Sounds, Non Tender, Non Distended, Soft, No Organomegaly - Rectal Rectal Exam: POSITIVE: Deferred - External Exam: POSITIVE: Deferred Exam: POSITIVE: Deferred - Extremities Additional Extremities Exam Details: Dressing applied to the right knee. - Back Back Exam: POSITIVE: Normal Inspection - Neurological Neurological Exam: POSITIVE: Alert, Oriented x 3, CN II-XII Intact, No Facial Droop, Speech Intact / Clear - Psychiatric Psychiatric Exam: POSITIVE: Normal Affect Results - Labs CBC and BMP: 10/28/18 11:20 Assessment and Plan - Patient Problems (1) Hypertension Current Visit: No Status: Acute Comment: Resume her medication tomorrow Code(s): I10 - Essential (primary) hypertension Qualifiers: Hypertension type: essential hypertension Qualified Code(s): I10 - Essential (primary) hypertension (2) Prediabetes Current Visit: Yes Status: Acute Comment: Resume medication tomorrow Code(s): R73.03 - Prediabetes (3) Status post right knee replacement Current Visit: Yes Status: Acute Comment: Management per Dr. Enrique, who wrote for pain medication and for DVT prophylaxis she was put on Lovenox Code(s): Z96.651 - Presence of right artificial knee joint (4) Chronic pain syndrome Current Visit: No Status: Acute Comment: She is on multiple medications including gabapentin, Lyrica. I think will restart the gabapentin hold the Lyrica for now. Consider restarting it tomorrow if she needed it. Code(s): G89.4 - Chronic pain syndrome (5) Restless leg syndrome Current Visit: Yes Status: Acute Comment: Resume Requip Code(s): G25.81 - Restless legs syndrome (6) History of anxiety Current Visit: Yes Status: Acute Comment: She is on Ativan and Cymbalta. Resume the Cymbalta will write for Ativan as needed. Code(s): Z86.59 - Personal history of other mental and behavioral disorders
[2018-10-28] MEDS: Clindamycin 900mg (Premix) 900 MG/50 ML BAG IV SCH ×2 (13:40→20:21)
[2018-10-28] MEDS: HYDROcodone-APAP 7.5 MG-325 MG TABLET PO PRN ×2 (14:08→22:25)
[2018-10-28] MEDS ORDERED: GABAPENTIN 300 MG CAPSULE PO SCH (15:00)
[2018-10-28] MEDS ORDERED: Ropinirole Tab 1 MG TAB PO ONE (17:30)
[2018-10-28] MEDS: GABAPENTIN 300 MG CAPSULE PO SCH ×2 (18:00→22:18)
[2018-10-28] MEDS: KETOROLAC 15 MG/1 ML VIAL IVP PRN (19:19)
[2018-10-28] MEDS: DOCUSATE 100 MG CAPSULE PO SCH (20:21)
[2018-10-28] MEDS ORDERED: Ropinirole Tab 1 MG TAB PO SCH (21:00)
[2018-10-28] MEDS: Ropinirole Tab 0.25 MG TAB PO PRN (22:20)
[2018-10-29] MEDS: KETOROLAC 15 MG/1 ML VIAL IVP PRN (00:56)
[2018-10-29] MEDS: Clindamycin 900mg (Premix) 900 MG/50 ML BAG IV SCH (01:19)
[2018-10-29 04:44] LABS: Hematocrit [HCT] 34.2 % (37.0-47.0); Hemoglobin [HGB] 11.6 g/dL (12.0-16.0); MEAN CORPUSCULAR HEMOGLOBIN 30.2 PG (27-31); MEAN CORPUSCULAR HGB CONC 33.9 g/dL (33-37); MEAN CORPUSCULAR VOLUME 89.1 FL (81-99); MEAN PLATELET VOLUME 9.6 FL (7.4-12.2); RED BLOOD COUNT 3.84 10^6/uL (4.20-5.40)
[2018-10-29 05:45] LABS: BLOOD UREA NITROGEN 21 mg/dL (7-22)
[2018-10-29] MEDS: HYDROcodone-APAP 7.5 MG-325 MG TABLET PO PRN ×2 (05:55→13:40)
[2018-10-29] MEDS: GABAPENTIN 300 MG CAPSULE PO SCH ×2 (05:55→10:52)
[2018-10-29] MEDS: Ropinirole Tab 0.25 MG TAB PO PRN (05:56)
--- NOTE | 2018-10-29 08:46 | PDOC(PROG) ---
Date of Service: 10/29/18 Time of Service: 08:30 Interval History: Subjective Was sitting in the chair doesn't appear in distress, denying symptoms apart from having some pain in the knee seem to be controlled with current pain medications. Family will bring medication to verify the dosage that she take. Objective : Data - Labs CBC and BMP: 10/29/18 04:29 10/29/18 04:29 Objective : Exam - General General Appearance: No Acute Distress, Cooperative, Morbidly Obese - Head Head Exam: Normal Inspection - Eye Eye Exam: Normal Appearance - ENT ENT Exam: Normal Exam - Neck Neck Exam: Normal Inspection - Respiratory Respiratory Exam: Clear to Auscultation - Bilaterally - Cardiovascular Cardiovascular Exam: RRR - GI/Abdominal GI/Abdominal Exam: Normal Bowel Sounds, Non Tender, Non Distended, Soft, No Organomegaly - Rectal Rectal Exam: Deferred - External Exam: Deferred - Extremities Additional Extremities Exam Details: Right leg in a brace. - Neurological Neurological Exam: Alert, Oriented x 3, CN II-XII Intact, No Facial Droop, Spe ech Intact / Clear - Psychiatric Psychiatric Exam: Normal Affect Assessment and Plan - Patient Problems (1) Hypertension Current Visit: No Status: Acute Comment: Same med Code(s): I10 - Essential (primary) hypertension Qualifiers: Hypertension type: essential hypertension Qualified Code(s): I10 - Essential (primary) hypertension (2) Prediabetes Current Visit: Yes Status: Acute Comment: Same medication Code(s): R73.03 - Prediabetes (3) Status post right knee replacement Current Visit: Yes Status: Acute Comment: Continue PT and OT. Likely home today if cleared by therapy. Code(s): Z96.651 - Presence of right artificial knee joint (4) Chronic pain syndrome Current Visit: No Status: Acute Comment: The list of her medication included both the gabapentin and Lyrica. We did not start the lyrica not sure whether she is taking it. They will bring her medication will verify. We'll continue the gabapentin for now. Code(s): G89.4 - Chronic pain syndrome (5) Restless leg syndrome Current Visit: Yes Status: Acute Comment: Same medication will verify the dosages of the Requip. Code(s): G25.81 - Restless legs syndrome (6) History of anxiety Current Visit: Yes Status: Acute Comment: Continue Ativan Code(s): Z86.59 - Personal history of other mental and behavioral disorders
[2018-10-29] MEDS: DOCUSATE 100 MG CAPSULE PO SCH (08:48)
--- NOTE | 2018-10-29 08:56 | ORTHO.PROG ---
Last Taken Vital Signs: Vital Signs - Last Taken Temperature 98.5 F 10/29/18 04:21 Pulse Rate 91 10/29/18 04:21 Respiratory Rate 18 10/29/18 04:21 Blood Pressure 142/85 10/29/18 04:21 Pulse Ox 96 10/29/18 04:21 Subjective: Patient reports her block is starting to wear off, but the her pain is controlled on the oral pain meds. She was nauseated this morning, but resolved with eating breakfast. Denies any current CP, SOB, F/C, calf pain, paresthesias, or N/V. She has worked with PT twice and feels comfortable going home today. Objective: Laboratory Results 10/28/18 10/29/18 10/29/18 11:20 04:29 04:29 WBC 13.32 H RBC 3.84 L Hgb 12.7 11.6 L Hct 38.3 34.2 L MCV 89.1 MCH 30.2 MCHC 33.9 RDW Std Deviation 47.1 RDW Coeff of Danny 14.8 H Plt Count 295 MPV 9.6 Sodium 131 L Potassium 5.0 Chloride 90 L Carbon Dioxide 22 L Anion Gap 19 BUN 21 Creatinine 0.7 Estimated GFR > 60 BUN/Creatinine Ratio 30.00 H Glucose 260 H Calculated Osmolality 283.0 Calcium 9.1 On exam, A&O x 3, sitting comfortable in chair. IROM brace on right leg. NV intact. Negative calf tenderness. FAROM of the right ankle. Assessment: POD 1 s/p routine right TKA, overall doing well and ready to be discharged home today. Plan: * DVT ppx: discharge home on ASA 81mg 1 tablet daily and portable SCDs * Pain meds: discharge home on IBU 800mg 1 tab TID and hydrocodone 7.5/325mg 1-2 tabs every 4-6hrs prn pain * IROM brace to wear while sleeping at night only * WBAT with walker * start outpatient PT on Saturday * cryocuff ice to knee * Wound care: remove dressing on POD 3; then may shower as normal, no soaking * follow-up with ortho as scheduled in 1 week * discharge home today once cleared by hospitalist
[2018-10-29] MEDS ORDERED: DULOXETINE 30 MG CAPSULE PO SCH (09:00)
[2018-10-29] MEDS ORDERED: ATENOLOL 50 MG TABLET PO SCH (09:00)
[2018-10-29] MEDS ORDERED: DAPAGLIFLOZIN PROPANEDIOL PO SCH (09:00)
[2018-10-29] MEDS ORDERED: sitaGLIPtin Tab 100 MG TAB PO SCH (09:00)
[2018-10-29] MEDS ORDERED: ENOXAPARIN SODIUM 30 MG/0.3 ML SYRINGE SUBCUT SCH (09:00)
[2018-10-29 09:21] VITALS: RESP 20
[2018-10-29] MEDS ORDERED: IBUPROFEN 800 MG TABLET PO SCH (10:00)
--- NOTE | 2018-10-29 11:58 | PT.PROG ---
Progress Note Progress Note: S. Patient stated she is feeling good and feels ready to go home. O. Patient ambulated 175 feet to the therapy gym where she performed, heel slides, quad sets, ankle pumps, and straight leg raises all x 10. Patient performed sit to stands x 10 then ascended and descended 5 stairs and ambulated 175 feet back to her room where she was left in her chair with alarm and call light. A. patient tolerated therapy well, she was able to perform stair training with ease. She would benefit from outpatient therapy at this time. P. Patient has met all goals at this time.
[2018-10-29 13:12] VITALS: BP 115/66; TEMP 97.4; O2SAT 93
--- NOTE | 2018-10-30 10:23 | PTI REPORT ---
Thank you for the referral of Toni Fisher. She was seen on 10/28/18 for an inpatient evaluation status post right total knee replacement. SUBJECTIVE: The patient is a 58-year-old female who underwent a right total knee replacement earlier today. The patient states that she is doing well and is looking forward to getting up with physical therapy this afternoon. The patient states that she currently has 0/10 pain and does have feeling of her right lower extremity. The patient reports that she has had the CPM on for approximately one hour earlier this afternoon but did have to have that off for a while as it was irritating her leg. The patient states that she lives here in [place] with her . She reports that they have two steps into the kitchen area of their home and a ramp that goes into the house. The patient reports that prior to her surgery she was not using an assistive device and also denies any falls over the last three months. The patient appears very motivated and is excited to start therapy and hopes to get to go home tomorrow. PAST MEDICAL HISTORY: Past medical history can be found in the patient's medical record. OBJECTIVE FINDINGS: General observations: The patient was alert and oriented to setting upon PT arrival. The patient was on one liter of oxygen with oxygen saturation at 95%. Her heart rate was 81 beats per minute. Blood pressure laying down was 120/75. The patient's SCD was removed from the left lower extremity and nursing staff did come in to cap her IV at this time so that we could attempt some light ambulation and going to the bathroom as the patient did not have a catheter in. Bed mobility: The patient was able to transfer from supine to seated edge of bed position with min assist x1. In a seated position the patient denied any lightheadedness or dizziness. Her blood pressure was 114/87. Her oxygen saturation was 87%. Her heart rate was 91 beats per minute. The patient was educated on breathing and we sat edge of bed for approximately three minutes. The patient was able to get her oxygen saturation up to 90% within the first minute and did demonstrate good seated edge of bed balance. The patient transferred back into bed with min assist x1. Transfers: A walker was placed in front of patient and a gait belt was placed around the patient. The bed was raised slightly and the patient transferred from a sitting to standing position with contact guard assist x1 for safety. With initial standing, the patient required hand hold assist x2 on the walker for safety. She denied any lightheadedness or dizziness. Her blood pressure was 129/93. Her oxygen saturation was at 89%. Her heart rate was 96 beats per minute. The patient was educated on breathing. Ambulation: The patient stood for approximately one minute prior to ambulating with walker approximately 15 feet to the bathroom. The patient did well with this and did require contact guard assist x1 for safety. The patient was able to transfer onto a raised toilet seat and perform toileting activity and hygiene with stand by assist x1 for safety measures. The patient was able to transfer off of the raised toilet seat with stand by assist x1 for safety and ambulate back to the bed an additional 15 feet with contact guard assist x1. ASSESSMENT: The patient has good rehab potential. Problem List: Patient is status post right total knee replacement Right knee pain Restricted range of motion Weakness Short-Term Goals: To be met by discharge from inpatient: Patient will be able to transfer from bed to stand safely and independently. Patient will be able to ambulate at least 150 feet safely with walker and weight-bearing as tolerated on the right. Patient will be able to ascend and descend at least five stairs safely with an assistive device. Patient will be able to place her IROM brace on and off. Per her orders, she is to wear that at night set at -10 degrees. IROM brace was checked and it is set at -10. We will instruct her how to properly don and doff the brace before she goes home. Long-Term Goals: To be met following discharge from inpatient: Patient will be seen by outpatient physical therapy for post op total knee care. TREATMENT PLAN: Patient will be seen B.I.D during the week and one time per day over the weekend as an inpatient to address the above goals and objectives. INITIAL TREATMENT: Treatment today consisted of the initial evaluation followed by one unit of functional activity. Following treatment the patient was left in bed. The CPM was placed back on the right lower extremity, set from 0 to 90 degrees. Nursing staff was notified that the CPM was back in place. The SCD was placed back on the left lower extremity. The patient's call light was placed within reach and bed alarm was set. MTDD
--- NOTE | 2018-10-30 10:40 | OTI REPORT ---
Thank you for the referral of Toni Fisher. She was seen on 10/29/18 for an occupational therapy inpatient evaluation status post right total knee arthroplasty. SUBJECTIVE: The patient is a 58-year-old female who underwent a right total knee replacement on 10/28/2018. The patient does live here in [place] with her . She reports that she can get into her home with no steps but has one step going from the living room to the kitchen. The patient reports prior to surgery she didn't have much pain except when using her knee. PAST MEDICAL HISTORY: Past medical history can be found in the patient's medical record. OBJECTIVE FINDINGS: General observations: The patient was found in her chair with her knee immobilizer on. Activities of daily living: The patient agreed to complete all dressing tasks. The patient was able to complete lower extremity and upper extremity dressing independently with no use of adaptive equipment. The patient has a tub shower at home with a seat and would like to be given a high rise toilet seat. Transfers: The patient was able to complete functional transfers with stand by assist only. Ambulation: The patient was able to ambulate all the way down to therapy, greater than 150 feet with stand by assist only. ASSESSMENT: The patient is doing very well. The patient was given a high rise toilet seat. TREATMENT PLAN: Patient will be discharged from OT services at this time. The patient's plan is to discharge home this afternoon. INITIAL TREATMENT: Treatment today consisted of the initial evaluation only. JORDAN
== END 2018-10-29 14:44 | disposition home or self-care (01) | DRG 470 ==
LOC: MED/SURG 10-28 05:53
PROVIDERS: ADMIT Orthopaedic Surgery; ATTEND Orthopaedic Surgery